=== PATIENT | male | born 1960 | race African-American/Black ===

== ENCOUNTER 2024-08-06 15:11 | Emergency (ER) | payer OTHER, SELFPAY ==
--- NOTE | 2024-08-06 | ECG_ITS ---
Test Reason : ALTERED MENTAL Blood Pressure : */* mmHG Vent. Rate : 82 BPM Atrial Rate : 82 BPM P-R Int : 152 ms QRS Dur : 116 ms QT Int : 400 ms P-R-T Axes : 77 42 85 degrees QTcB Int : 468 ms Normal sinus rhythm Minimal voltage criteria for LVH, may be normal variant ( Hang product ) Nonspecific T wave abnormality Prolonged QT Abnormal ECG When compared with ECG of 17-Jun-2014 14:10, T wave inversion no longer evident in Inferior leads Referred By: Generic ED Physician Electronically Signed By: HARRY SARAH
[2024-08-06 15:18] VITALS: BP 117/70; PULSE 84; RESP 18; TEMP 37.3; O2SAT 95; BMI 20.3
[2024-08-06 15:41] LABS: Hematocrit 32.9 % (42.0-52.0); Hemoglobin 11.8 g/dl (14.0-18.0); Imm Gran Abs Auto 0.01 X10*3/uL (0.00-0.03); Imm Gran Pct Auto 0.3 % (0.0-0.4); Lymphocytes Percent Auto 50.4 % (20-40); MANUAL DIFF FLAG NO; Mean Corpuscular HGB Conc 35.9 g/dl (31.0-36.0); Mean Corpuscular Hemoglobin 33.5 pg (27.0-33.0); Mean Corpuscular Volume 93.5 fL (80.0-98.0); Mean Platelet Volume 8.8 fL (9.4-12.4); Monocytes Absolute Auto 0.5 X10*3/uL (0.1-1.2); Monocytes Percent Auto 11.7 % (2-11); Neutrophils Absolute Auto 1.4 x10*3/uL (2.0-8.3); Neutrophils Percent Auto 35.6 % (45-73); Platelet Count 171 X10*3/uL (160-400); Red Blood Count 3.52 X10*6/uL (4.60-5.80); Red Cell Distribution Width 12.8 % (11.0-16.0); White Blood Count 3.9 X10*3/uL (4.8-10.8)
[2024-08-06 15:42] LABS: Glucose, Whole Blood 79 mg/dL (60-115)
[2024-08-06 15:56] LABS: Anion Gap 17 (12-20); Blood Urea Nitrogen 12 mg/dL (9-16); Calcium 8.1 mg/dL (8.4-10.2); Carbon Dioxide 23 mmol/L (22-29); Chloride 99 mmol/L (96-108); Creatinine Clr Calc Pharmacy 93.3; Estimated Glomerular Filt Rate > 60; Ethanol 247 mg/dL; Glucose Random 69 mg/dL (60-115); Potassium 3.3 mmol/L (3.3-5.1); Sodium 136 mmol/L (135-145)
--- NOTE | 2024-08-06 16:18 | MHC.CARE ---
Pt seen by [facility] crisis team in community, on section 12 for inpatient level of care. Requires medical clearance as glucose level is reported to be 700. [facility] to send assessment when completed.
[2024-08-06 16:52] LABS: Salicylate < 5.0 mg/dL (15-30)
--- NOTE | 2024-08-06 17:39 | ED_ITS ---
HPI - Psych General Chief Complaint: Psychiatric Symptoms Stated Complaint: Sec 12 [facility], delusional behavior, uncooperative Time Seen by Provider: 08/06/24 15:57 Source: patient and EMS Mode of arrival: EMS Limitations: altered mental status History of Present Illness ED Provider: Korina Mayfield NP HPI Narrative: Patient is a 63-year-old male past medical history of diabetes, hyperlipidemia, unclear mental health history who presents emergency department via EMS on a section 12, from [facility]. he was getting into a verbal altercation staff there, stating that someone had owed him money. Uncooperative with staff there. On arrival, he does not provide much history as to why he is here, he appears intoxicated, responds to his name, answer some yes no questions otherwise providing much meaningful history. section 12 listing history of delusional thought process , refusing diabetic medications, high sugars Related Data Home Medications ?Medication ?Instructions ?Recorded ?Confirmed insulin glargine 100 unit/mL (3 unit subcut 08/07/24 mL) subcutaneous pen (Lantus Solostar U-100 Insulin) insulin lispro 100 unit/mL subcut 08/07/24 subcutaneous pen (Humalog KwikPen (U-100) Insulin) metformin 1,000 mg tablet 1,000 mg PO BID diabetes mellitus 08/07/24 08/07/24 olanzapine 20 mg tablet 20 mg BEDTIME 08/07/24 08/07/24 simvastatin 20 mg tablet 20 mg PO BEDTIME 08/07/24 08/07/24 Allergies Allergy/AdvReac Type Severity Reaction Status Date / Time No Known Allergies Allergy Verified 08/06/24 15:22 [No Known Allergies*] Review of Systems 2 Review of Systems: Yes all other systems are reviewed and are negative [facility] Past Medical History Attestation statement: The following information was validated with the patient. Source: old records reviewed Social History Social History Unable to assess alcohol history related to: Refusing to respond Smoked in Last 30 Days: Yes Use of substances other than those prescribed or required for medical reasons: Refusing to respond Advance Directives: No Advance Directives Information Provided: No Physical Exam 2 Vital Signs: Vital Signs: Last Vital Signs Temp 98.4 F 08/07/24 17:47 Pulse 72 08/07/24 17:47 Resp 16 08/07/24 17:47 BP 172/99 H 08/07/24 17:47 Pulse Ox 98 08/07/24 17:47 O2 Del Method Room Air 08/07/24 17:47 BMI result Body Mass Index 20.3 Appearance: Alert but drowsy. No acute distress.? responds to name, answering some yes no questions. appears intoxicated Eyes: Pupils equal, round and reactive to light.? ENT: Pharynx normal.?? Neck: Normal inspection.? Neck supple.?? CVS: Heart sounds normal. Normal heart rate and rhythm.? Pulses normal.?? Respiratory: No respiratory distress.? Lung sounds clear to auscultation bilaterally?? Abdomen: Soft and non-tender. Normoactive bowel sounds. Skin: Skin warm and dry.? Normal skin color.? Extremities: No lower extremity edema.? Neuro: Moves all extremities spontaneously. Sensation intact bilaterally. unable to perform cranial nerve exam, not able to follow all commands due to acute intoxication. No focal deficits. Ambulates with unsteady gait. Course Reevaluation(s) Reevaluation #1: Evaluated by care team, deemed inpatient level of care, placed on section 12, bed search to ensue Time: 21:45 Reevaluation #2: Angel Barnes: The patient has been seen by Psychiatry today. 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 The patient is also noncompliant with any medications and denies having diabetes. Psychiatry does not feel the patient has the capacity to make healthcare decisions and therefore does not feel the patient can be discharged. Thus the patient will be kept in the emergency room. I have ordered Lantus insulin, metformin, olanzapine, and trazodone which has been the patient has medications at discharge from [facility] at the end of March 2024. I suspect the patient will not take any of these medications voluntarily. Psychiatry as recommended that case management pursue guardianship. The patient apparently has been on a temporary Ankit's order but this has . The patient will be kept in the emergency room for ongoing management. Time: 03:48 Medications Administered Generic Name Dose Route Start Last Admin Trade Name Freq PRN Reason Stop Dose Admin Insulin Human Lispro 0 unit 08/07/24 11:30 08/07/24 22:03 Insulin Lispro 100 Unit/Ml 3 Ml Vial SUBCUT 08/08/24 10:57 Not Given [facility]ACHS [facility] Protocol Thiamine HCl 100 mg 08/07/24 16:20 08/07/24 17:55 Thiamine Hcl 100 Mg Tablet PO Not Given DAILY [facility] Medical Decision Making Medical Decision Making [facility] Narrative: Patient is a 63-year-old male past medical history of diabetes, hyperlipidemia, unclear mental health history (no records in our medical system) who presents on a section 12 as per HPI got cirrhosis, and reportedly not taking his diabetic medications, was argumentative with staff at [facility] verbally aggressive. Acutely intoxicated at the time my evaluation. He does not provide much meaningful history. He is drowsy but alert and responds to name, answer some yes no questions though not clear if these are accurate answers. We will obtain serum labs in addition to toxicology testing. CBC reveals mild leukopenia 3900, mild normocytic anemia not meeting transfusion criteria, no thrombocytopenia. Viral serologies are negative. No RAFAEL. Glucose of 79. Ethyl alcohol level of 247. Will be placed in physician observation until clinically sober and can ensue care team evaluation. Will monitor CIWA Differential Diagnosis Differential Diagnoses: The differential diagnosis associated with the presentation includes (See narrative above and below for further detail) Admission/Observation Consideration of admission/observation: Escalation of care including admission/observation considered Patient is being observed in the Emergency Department for encephalopathy. Observation time was started at 16:11 on .?The patient is currently stable and non-toxic appearing. Observation is being initiated in the Emergency Department to allow time to help differentiate if the patient?s encephalopathy and delirium is due to alcohol intoxication and polysubstance abuse versus stroke, transient ischemic attack, major depression, overdose of medication, arrhythmia, seizure, or closed head injury/concussion. The patient will receive frequent assessments from the provider as well as the nursing staff. The patient will be monitored for the need for diagnostic imaging such as a CT head, MRI brain, chest x-ray, and serial EKGs to evaluate for prolonged QTc intervals. The patient will also be monitored for the need of PRN agitation medications such as Haldol, Ativan, and Benadryl. Physician observation continued. No acute events during my care. Vital signs stable. We will continue to monitor. Consult Healthcare Provider Management of the patient was discussed with: Behavioral Health Provider (CARE team) Lab Data [facility] Lab Attestation statement: I reviewed the patient's lab results. ( see narrative above) 08/06/24 15:35 08/06/24 15:35 Labs: Lab Results 08/06/24 08/06/24 08/07/24 Range/Units 15:35 15:39 09:51 WBC 3.9 L (4.8-10.8) X10*3/uL RBC 3.52 L (4.60-5.80) X10*6/uL Hgb 11.8 L (14.0-18.0) g/dl Hct 32.9 L (42.0-52.0) % MCV 93.5 (80.0-98.0) fL MCH 33.5 H (27.0-33.0) pg MCHC 35.9 (31.0-36.0) g/dl RDW 12.8 (11.0-16.0) % Plt Count 171 (160-400) X10*3/uL MPV 8.8 L (9.4-12.4) fL Immature Gran % (Auto) 0.3 (0.0-0.4) % Neut % (Auto) 35.6 L (45-73) % Lymph % (Auto) 50.4 H (20-40) % [place] % (Auto) 11.7 H (2-11) % Eos % (Auto) 1.0 (0-4) % Baso % (Auto) 1.0 (0-2) % Lymph # (Auto) 2.0 (1.2-4.9) X10*3/uL [place] # (Auto) 0.5 (0.1-1.2) X10*3/uL Eos # (Auto) 0.0 (0.0-0.4) X10*3/uL Baso # (Auto) 0.0 (0.0-0.2) X10*3/uL Abs Immat Gran (auto) 0.01 (0.00-0.03) X10*3/uL Absolute Neuts (auto) 1.4 L (2.0-8.3) x10*3/uL Absolute Nucleated RBC 0.000 (0.0-0.012) X10*3/uL Nucleated RBC % (auto) 0.0 (0.0-0.2) /100WBC Sodium 136 (135-145) mmol/L Potassium 3.3 (3.3-5.1) mmol/L Chloride 99 (96-108) mmol/L Carbon Dioxide 23 (22-29) mmol/L Anion Gap 17 (12-20) BUN 12 (9-16) mg/dL Creatinine 0.80 (0.5-1.4) mg/dL Estim Creat Clear Calc 93.3 Estimated GFR > 60 POC Glucose 79 366 H* (60-115) mg/dL Random Glucose 69 (60-115) mg/dL Calcium 8.1 L (8.4-10.2) mg/dL Triglycerides 84 (<150) mg/dL Cholesterol 222 H (<200) mg/dL LDL Cholesterol, Calc 138 H (<100) mg/dL HDL Cholesterol 68 (>40) mg/dL Vitamin B12 866 (200-900) pg/mL Folate 14.2 (> or = 4.0) ng/mL TSH 0.30 L (0.32-4.0) uIU/mL Free T4 0.91 (0.71-1.85) ng/dL Salicylates < 5.0 L (15-30) mg/dL Ethyl Alcohol 247 mg/dL Independent Historian Clinical information obtained from an independent historian. History obtained from or confirmed by: EMS Chronic Conditions Patient?s care impacted by: Other ( see narrative above) Discharge Plan Discharge Clinical Impression: Alcohol intoxication Patient Disposition: Still a Patient Prescriptions: No Action simvastatin 20 mg tablet 20 mg PO BEDTIME metformin 1,000 mg tablet 1,000 mg PO BID olanzapine 20 mg tablet 20 mg BEDTIME insulin lispro [Humalog KwikPen Insulin] 100 unit/mL insulin pen SUBCUT insulin glargine [Lantus Solostar U-100 Insulin] 100 unit/mL (3 mL) insulin pen subcut Interventions: [place]-Suicide Risk Severity Scale Last Done: 08/07/24 17:07 Print Language: Estonian
--- NOTE | 2024-08-06 18:08 | PC.NURSE ---
patient previously brought from [facility], section 12 by chd in the field. patient has been ambulating independently, resting quietly in room.
[2024-08-06 18:19] VITALS: BP 143/76; PULSE 80; RESP 14; TEMP 36.7; O2SAT 97
--- NOTE | 2024-08-06 19:05 | PC.NURSE ---
patient appears to remain at rest presently respirations are even and unlabored patient appears in no distress
--- OUTSIDE RECORDS SUMMARY | 2024-08-06 19:16 | XMS_ITS | Encounter Summary ---
Author Organization [facility] Address [address] [place] [address] Care Team Providers Care Dental Chairside Assistant Name Role Phone Norbert Vitale Primary Care Provider [phone] Encounter Details Date Type Department Care Team (Late st Contact Info) Description 09/27/2021 Dental Interim Note [facility] Main Dental [address] [place] [id number] Carmen Quinteros DDS [address] [place] [address] Social History Tobacco Use Types Packs/Day Years Used Date Smoking Tobacco: Heavy Smoker Cigarettes Smokeless Tobacco: Never Alcohol Use Standard Drinks/Week Comments Yes 0 (1 standard drink = 0.6 oz pur e alcohol) Social Connections Answer Date Recorded Social Connections and Isolation 0 01/17/2019 Financial Resource Strain Answer Date R ecorded Financial Resource Strain 0 2018 Stress Answer Date Recorded Stress 0 01/17/2019 Physical Activity Answer Date Recorded Physical Activity 0 01/17/2019 Food Insecurity Answer Date Recorded Food 0 01/17/2019 Transportation Needs Answer Date Record ed Transportation 0 01/17/2019 Housing Stability Answer Date Recorded Housing 0 01/17/2019 Safety and Environment Answer Date Cj rded Safety 0 01/17/2019 Utilities Answer Date Recorded Utilities 0 01/17/2019 Employment Answer Date Recorded Employment 0 01/17/2019 Sex and Gender Information Value Date Recorded Sex Assigned at Male 12/26/2017 9:46 AM PDT Legal Sex Male 11:36 AM PDT Gender Identity Male 12/26/2017 9:46 AM PDT Sexual Orientation Straight 12/26/2017 9: 46 AM PDT documented as of this encounter Plan of Treatment Upcoming Encounters Date Type Department Care Team (Late st Contact Info) Description 08/18/2024 2:20 PM EDT [facility] [address] [place] [phone] Norbert Vitale PA [address] [place] [address] documented as of this encounter Visit Diagnoses Not on filedocumented in this encounter Additional Health Concerns Assessment Noted Time PHQ-9 Depression Total Score: 0 01/18/20 21 10:06 AM PDT documented as of this encounter Care Teams Dental Chairside Assistant Relationship Specialty Start Date End Date Norbert Vitale PA [address] [place] [address] PCP - General Internal Medicine 12/13/17 documented as of this encounter
--- OUTSIDE RECORDS SUMMARY | 2024-08-06 19:16 | XMS_ITS | Clinical Summary ---
Author Organization [facility] Address [address] [place] [address] Care Team Providers Care Ground Operations Supervisor Name Role Phone Norbert Vitale Primary Care Provider [phone] Source Comments PLEASE NOTE, if this patient is a minor, it may be UNLAWFUL to discuss sensitive information that is contained in these records (such as FAMILY PLANNING, MENTAL HEALTH or SUBSTANCE ABUSE) with the minor patient's parent or other person without the patient's specific authorization.[facility] Allergies No known active allergies Medications multivitamin (DAILY-FRANDY) tabletIndications :Health care maintenance Take 1 Tab by mouth once daily 30 Tab 1 0 Active multivitamin (DAILY-FRANDY) tabletIndications :Health care maintenance Take 1 Tab by mouth once daily 30 Tab 0 Active dulaglutide (TRULICITY) 1.5 mg/0.5 mL pnijIndications:C ontrolled type 2 diabetes mellitus with complication, with long-term current use of insulin ([facility]) Inject 1.5 mg into the skin once a week 4 Syringe 11 0 Active alcohol swabs (ALCOHOL PREP PADS)Indications: Controlled type 2 diabetes mellitus with complication, with long-term current use of insulin ([facility]) USE EVERY DAY DIRECTED 200 Each 5 0 Active lancetsIndication s:Controlled type 2 diabetes mellitus with complication, with long-term current use of insulin ([facility]) Use bid for dm 250.02 as directed. 100 Each 1 0 Active blood sugar diagnostic (FREESTYLE LITE STRIPS) stripsIndications :Type 2 diabetes mellitus with complication, with long-term current use of insulin ([facility]) as needed for high blood sugar (bid testing for DM 250.02) 100 Each 11 0 Active blood-glucose meter (FREESTYLE LITE METER) monitoring kitIndications:Ty pe 2 diabetes mellitus with complication, with long-term current use of insulin ([facility]) as needed for blood glucose monitoring E11.8 - Freestyle Meter Kit 1 Each 0 Active OLANZapine (ZYPREXA) 10 mg tablet 0 Active OLANZapine (ZYPREXA) 20 mg tablet 0 Active BD INSULIN SYRINGE ULTRA-FINE 0.5 mL 31 gauge x 5/16 0 Active benztropine (COGENTIN) 1 mg tablet 0 Active fluPHENAZine decanoate (PROLIXIN) 25 mg/mL injection 0 Active food supplemt, lactose-reduced liquidIndications :Weight loss Take by mouth as needed for other reason Drink one can twice daily. 414 mL 1 Active lisinopriL 10 mg tabletIndications :Controlled type 2 diabetes mellitus with complication, with long-term current use of insulin ([facility]) TAKE 1 TABLET BY MOUTH EVERY DAY 90 Tablet 2 2 Active metFORMIN (GLUCOPHAGE) 500 mg tabletIndications :Controlled type 2 diabetes mellitus with complication, with long-term current use of insulin ([facility]) TAKE 1 TABLET BY MOUTH TWICE A DAY WITH FOOD 180 Tablet 1 3 Active glipiZIDE (GLUCOTROL) 10 mg tabletIndications :Uncontrolled other specified diabetes mellitus with hyperglycemia ([facility]) Take 10 mg by mouth 2 (two) times daily before a meal 4 Active haloperidoL (HALDOL) 10 mg tablet Take 10 mg by mouth once 4 Active haloperidoL (HALDOL) 5 mg tablet Take 5 mg by mouth 2 (two) times daily 4 Active simvastatin (ZOCOR) 20 mg tabletIndications :Hypercholesterem ia Take 1 tablet by mouth everyday at bedtime 90 Tablet 1 4 Active traZODone (DESYREL) 50 mg tabletIndications :Insomnia, unspecified type Take 1 Tablet by mouth nightly at bedtime 30 Tablet 4 Active ferrous sulfate 325 mg (65 mg iron) tabletIndications :Anemia, unspecified type Take 1 Tablet by mouth once daily with breakfast 90 Tablet 2 4 Active Active Problems Problem Noted Date Diagnosed Date Type 2 diabetes mellitus ([facility]) 09/08/2013 Alcohol dependence ([facility]) 06/04/2011 Moderate mixed hyperlipidemia not requiring stat in therapy Paranoid schizophrenia ([facility]) Anemia Healthcare maintenance Immunizations Name Administration Dates Next Due Flu, Preservative Free 02/26/2018 TDAP 01/28/2022 Social History Tobacco Use Types Packs/Day Years Used Date Smoking Tobacco: Heavy Smoker Cigarettes Smokeless Tobacco: Never Tobacco Cessation:Ready to Q uit: No; Counseling Given: Not Answered Alcohol Use Standard Drinks/Week Comments Yes 0 (1 standard drink = 0.6 oz pur e alcohol) Social Connections Answer Date Recorded Connectedness 0 11/22/2021 Financial Resource Strain Answer Date R ecorded Financial Resource Strain 0 2018 Stress Answer Date Recorded Stress 0 11/22/2021 Physical Activity Answer Date Recorded Physical Activity 0 01/17/2019 Food Insecurity Answer Date Recorded Food 0 11/22/2021 Transportation Needs Answer Date Record ed Transportation 0 11/22/2021 Housing Stability Answer Date Recorded Housing 0 11/22/2021 Safety and Environment Answer Date Cj rded Safety 0 11/22/2021 Utilities Answer Date Recorded Utilities 0 11/22/2021 Employment Answer Date Recorded Employment 0 01/17/2019 Sex and Gender Information Value Date Recorded Sex Assigned at Male 12/26/2017 9:46 AM PDT Legal Sex Male 11:36 AM PDT Gender Identity Male 12/26/2017 9:46 AM PDT Sexual Orientation Straight 12/26/2017 9: 46 AM PDT Last Filed Vital Signs Vital Sign Reading Time Taken Comments Blood Pressure 166/90 09/17/2023 1:22 PM EDT Pulse 94 09/17/2023 1:22 PM EDT Temperature 36.8 ??C (98.2 ??F) 09/17/2023 1:22 PM ED T Respiratory Rate 20 09/17/2023 1:22 PM EDT Oxygen Saturation 97% 09/17/2023 1:22 PM EDT Inhaled Oxygen Concentration - - Weight 73.5 kg (162 lb) 09/17/2023 1:22 PM EDT Height 175.3 cm (5' 9 ) 09/17/2023 1:22 PM EDT Body Mass Index 23.92 09/17/2023 1:22 PM EDT Plan of Treatment Upcoming Encounters Date Type Department Care Team (Late st Contact Info) Description 08/18/2024 2:20 PM EDT Office Visit [address] [place] [phone] Norbert Vitale PA [address] [place], [place] [phone] Health Maintenance Due Date Last Done Comments Dental Examination 1960 Diabetes Foot Exam 1962 Retinopathy Screening 10/12/1975 Imm-Pneumococcal (1 of 2 - PCV) 1981 CT Colonography 10/12/2007 Colonoscopy 10/12/2007 Colorectal Cancer Screening 10/12/2007 FIT/gFOBT 10/12/2007 Fecal DNA 10/12/2007 Flexible Sigmoidoscopy 10/12/2007 Imm-Zoster, Recombinant (1 of 2) 2012 Medicare Annual Wellness Visit 12/26/2018 12/26/2017 Diabetes Microalbumin (w/Creatinine) 01/17/2022 01/17/2021 Tobacco Cessation Counseling (#1) 01/17/2022 021 Diabetes HbA1c 12/17/2023 09/17/2023, 10/26, 01/23/2021, Additional history exists [id number] ( - season) 2024 Imm-Influenza (#1) 2024 02/26/2018 Alcohol and Drug Screen 05/27/2024 09/17/19 24, 11/22/2021, 11/22/2021, Additional history exists Depression Annual Screen 05/27/2024 024, 12/25/2018, 12/26/2017 Hypertension Screening (#1) 09/16/2024 Lipid Screening 09/16/2024 09/17/2023, 12/27, 12/25/2018 Serum Creatinine 09/16/2024 09/17/2023, 06/2019, 12/25/2018, Additional history exists Imm-DTaP/Tdap/Td (2 - Td or Tdap) 01/29/2032 022 Hepatitis C Screening Completed 12/25/2018 HIV Screening Completed 01/23/2021 Procedures Procedure Name Priority Date/Time Associated Diagnosis Comments COMPREHENSIVE METABOLIC PANEL Routine 09/17/2023 2:29 PM EDT Hospital discharge follow-up LIPID PANEL Routine 09/17/2023 2:29 PM EDT Hospital discharge follow-up HGBA1C W/MPG Routine 09/17/2023 2:29 PM EDT Hospital discharge follow-up HIV 1/2 AG & AB W/RFLX (4TH GEN) Routine 01/23/2021 8:29 AM EDT Routine adult health maintenance MICROALBUMIN URINE (POCT) Routine 01/17/2021 4:13 PM EDT Prediabetes HEPATITIS A,B,C PANEL Routine 12/25/2018 4:25 PM EDT Controlled type 2 diabetes mellitus with complication, with long-term current use of insulin ([facility]) from Last 3 Months or Most Recently Relevant to Health Maintenance Results * (ABNORMAL) HGBA1C W/MPG (09/17/2023 2:29 PM EDT) HEMOGLOBIN A1C 12.2(H) <5.7 % of total Hgb [email or web address] Comment: For someone without known diabetes, a hemoglobin A1c value of 6.5% or greater indicates that they may have diabetes and this should be confirmed with a follow-up test. For someone with known diabetes, a value <7% indicates that their diabetes is well controlled and a value greater than or equal to 7% indicates suboptimal control. A1c targets should be individualized based on duration of diabetes, age, comorbid conditions, and other considerations. Currently, no consensus exists regarding use of hemoglobin A1c for diagnosis of diabetes for children. ?? MEAN PLASMA GLUCOSE 357 mg/dL (calc) [email or web address] Blood Blood / Unknown 09/17/2023 2 :29 PM EDT 09/17/2023 2:29 PM EDT Narrative [facility] - 09/18/2023 8:42 AM EDT PATIENT UNABLE TO VOID; ADVISED TO RETURN FOR COLLECTION. Monalisa Jimenez PA-C LAB - BLOOD DRAW Edited Res ult - Final [facility] [employer] [address] [place] [address], [facility] [address] [address] * (ABNORMAL) LIPID PANEL (09/17/2023 2:29 PM EDT) [facility] CHOLESTEROL, TOTAL 274(H) <200 mg/dL [facility] HDL CHOLESTEROL 96 > OR = 40 mg/dL [facility] TRIGLYCERIDES 105 <150 mg/dL [facility] LDL-CHOLESTEROL 156(H) 99 mg/dL (calc) [facility] Comment: Reference range: <100 Desirable range <100 mg/dL for primary prevention; ?? <70 mg/dL for patients with CHD or diabetic patients with > or = 2 CHD risk factors. LDL-C is now calculated using the Adarsh-Samuels calculation, which is a validated novel method providing better accuracy than the Friedewald equation in the estimation of LDL-C. Adarsh SS et al. CARROLL. 2013;310(19): 2394-5111 (http://education.Needcheck/faq/AZA692) CHOL/HDLC RATIO 2.9 <5.0 (calc) [facility] NON-HDL CHOLESTEROL 178(H) <130 mg/dL (calc) [facility] Comment: For patients with diabetes plus 1 major ASCVD risk factor, treating to a non-HDL-C goal of <100 mg/dL (LDL-C of <70 mg/dL) is considered a therapeutic option. Blood Blood / Unknown 09/17/2023 2 :29 PM EDT 09/17/2023 2:29 PM EDT Narrative [facility] - 09/18/2023 8:42 AM EDT PATIENT UNABLE TO VOID; ADVISED TO RETURN FOR COLLECTION. Monalisa Jimenez PA-C LAB - BLOOD DRAW Final Resu lt [facility] [address] [address], [facility] [address] [place] [address] * (ABNORMAL) COMPREHENSIVE METABOLIC PANEL (09/17/2023 2:29 PM EDT) GLUCOSE 295(H) 65 - 99 mg/dL [facility] Comment: ?Fasting reference interval For someone without known diabetes, a glucose value >125 mg/dL indicates that they may have diabetes and this should be confirmed with a follow-up test. UREA NITROGEN (BUN) 12 7 - 25 mg/dL [facility] CREATININE (blood) 0.81 0.70 - 1.35 mg/dL [facility] EGFR 101 > OR = 60 mL/min/1. 73m2 [email or web address] BUN/CREATININE RATIO SEE NOTE: [facility] Comment: ?? Not Reported: BUN and Creatinine are within ?? reference range. ? SODIUM 136 135 - 146 mmol/L [facility] POTASSIUM 3.9 3.5 - 5.3 mmol/L [facility] CHLORIDE 101 98 - 110 mmol/L [facility] CARBON DIOXIDE 24 20 - 32 mmol/L [facility] CALCIUM 9.3 8.6 - 10.3 mg/dL [facility] PROTEIN, TOTAL 7.7 6.1 - 8.1 g/dL [facility] ALBUMIN 4.2 3.6 - 5.1 g/dL [facility] GLOBULIN 3.5 1.9 - 3.7 g/dL (calc) [facility] ALBUMIN/GLOBULI N RATIO 1.2 1.0 - 2.5 (calc) [facility] BILIRUBIN, TOTAL 0.4 0.2 - 1.2 mg/dL [facility] ALKALINE PHOSPHATASE 104 35 - 144 U/L [facility] AST 24 10 - 35 U/L [facility] ALT 15 9 - 46 U/L [facility] Blood Blood / Unknown 09/17/2023 2 :29 PM EDT 09/17/2023 2:29 PM EDT Narrative [facility] - 09/18/2023 8:42 AM EDT PATIENT UNABLE TO VOID; ADVISED TO RETURN FOR COLLECTION. Monalisa Jimenez PA-C LAB - BLOOD DRAW Final Resu lt [facility] [address] [address], [facility] [address] [address] * HIV 1/2 AG & AB W/RFLX (4TH GEN) (01/23/2021 8:29 AM EDT) HIV AG/AB, 4TH GEN NON-REAC TIVE NON-REAC TIVE [facility] Comment: HIV-1 antigen and HIV-1/HIV-2 antibodies were not detected. There is no laboratory evidence of HIV infection. PLEASE NOTE: This information has been disclosed to you from records whose confidentiality may be protected by state law. ??If your state requires such protection, then the state law prohibits you from making any further disclosure of the information without the specific written consent of the person to whom it pertains, or as otherwise permitted by law. A general authorization for the release of medical or other information is NOT sufficient for this purpose. ?? For additional information please refer to http://education.S4 Worldwide/faq/UEJ224 (This link is being provided for informational/ educational purposes only.) The performance of this assay has not been clinically validated in patients less than 2 years old. Blood Blood / Unknown 01/23/2021 8 :29 AM EDT 01/23/2021 8:30 AM EDT Narrative [facility] - 01/24/2021 1:18 AM EDT FASTING:YES Norbert PATEL LAB - BLOOD DRAW Final Result [facility] [address] [address], [employer] [address] [address] * (ABNORMAL) MICROALBUMIN URINE (POCT) (01/17/2021 4:13 PM EDT) ALBUMIN 150 0 - 300 mg/L [facility] PO[facility] URCREAT 100 10 - 300 mg/dL [facility] POCT Comment: ??[facility] [id number] ALBUMIN/CREATIN INE RATIO >300 29 - 300 mg/g [facility] POCT Urine Urine specimen / Unknown 01/17/2021 4:13 PM EDT Norbert PATEL LAB - NO BLOOD DRAW Final Resu lt [facility] POCT * HEPATITIS A,B,C PANEL (12/25/2018 4:25 PM EDT) HEPATITIS B SURFACE ANTIBODY NEGATIVE NEGATIVE [facility] HEPATITIS B SURFACE ANTIGEN NEGATIVE NEGATIVE [facility] Comment: Over the counter supplements containing high doses of biotin may interfere with this assay. ??If interference is suspected, patients shoud be retested after refraining from biotin supplements for 72 hours. HEPATITIS C VIRUS DIAGNOSTIC NEGATIVE NEGATIVE [facility] HEPATITIS B CORE ANTIBODY NEGATIVE NEGATIVE [facility] HEPATITIS A ANTIBODY TOTAL NEGATIVE NEGATIVE [facility] Comment: Over the counter supplements containing high doses of biotin may interfere with this assay. ??If interference is suspected, patients shoud be retested after refraining from biotin supplements for 72 hours. Blood specimen (specimen) Blood / Unknown 12/25/2018 4:25 PM EDT 12/25/2018 4:55 PM EDT Narrative [facility] - 12/25/2018 7:27 PM EDT [employer], a member of [address] [address] [employer] Ui Designer - Amy Waggoner [place] [id number] ORD# [id number] Norbert PATEL [facility] - BLOOD DRAW Edited Result - Final Performing Organization Address City/[facility]/ZIP Co de Phone Number [employer] [address], from Last 3 Months or Most Recently Relevant to Health Maintenance Insurance [facility] Member Subscriber Plan / Payer (Ef fective 2013-Present) Name:Kishan Kumar Relation to Subscriber:Self Name:Kishan Kumar Payer ID:[id number] Group ID:Not on file Type:[employer] Address: [address] [place] [address] [facility] Care Teams Ground Operations Supervisor Relationship Specialty Start Date End Date Norbert Vitale PA [address] [place] [address] PCP - General Internal Medicine 12/13/17
--- NOTE | 2024-08-06 20:12 | PC.NURSE ---
according to prior nurse, not med compliant
[2024-08-06 22:09] VITALS: RESP 18
[2024-08-07 06:00] VITALS: RESP 18
--- NOTE | 2024-08-07 08:20 | PC.NURSE ---
PT inquiring about why he is still here, attempted to explain, pt adamant about not needing hospitalization. Pt currently in NAD, sitting and rocking gently side to side in his room. Ate all of his breakfast this am.
[2024-08-07 09:55] LABS: Glucose, Whole Blood 366 mg/dL (60-115)
--- NOTE | 2024-08-07 09:56 | PC.NURSE ---
OBTAINED POCT GLUCOSE AFTER PT INITIAL REFUSAL, PT DENIES DX OF DIABETES DIAGNOSIS. POCT GLUCOSE 366, WILL NOTIFY PROVIDER FOR NEW ORDERS AND MED REC.
--- NOTE | 2024-08-07 11:32 | PC.NURSE ---
Addendum entered by Angie Ramirez RN 08/07/24 11:34: DIET ORDER CORRECTED TO DIABETIC TRAY. Original Note: ATTEMPTED TO ADMINISTER INSULIN SUBQ ORDERED, PT IS REFUSING, BECOMING BELLIGERENT, PROFANE LANGUAGE CONTINUING TO DENY DIABETES DX. PT YELLING, LEAVING NO ROOM FOR REASONABLE DISCUSSION AND INQUIRY.
--- NOTE | 2024-08-07 13:44 | PC.NURSE ---
Pt refusing POC check, became agitated and combative with staff.
--- NOTE | 2024-08-07 13:55 | MHC.EDTECH ---
Attempted POC check. Pt refused and became verbally abusive saying I don't have diabetes! Get out of my face you fug ase!
[2024-08-07 14:39] VITALS: RESP 16
--- NOTE | 2024-08-07 16:40 | PM.PSYCN ---
History of Present Illness Date of Service: 08/07/2024 Chief Complaint: Sec 12 CHD, delusional behavior, uncooperative Discussed with referring provider: Yes Sources of Information: patient interviewed, chart reviewed and crisis/core team assessment reviewed HPI Narrative: Mr. Valdivia is a 63 year-old male with hx of DM, schizophrenia, alcohol/cocaine use disorder who was brought via EMS after he was seen by [facility]S team. Pt has been refusing medications for both psychiatric illness and DM. He was last medically admitted at [facility] back in 02/2024 when he was treated for DKA (per [facility] Records). At the time, they had obtained a guardianship with [employer]. Unclear if it is still active. Pt presents as very guarded, suspicious. He was found to have BS 366, refusing lispro stating he does not have DM and this is a lie by the doctors here. His BAL initially was 247. CBC without leukocytosis. CMP without electrolyte abnormalities. complete utox not completed. Pt presents as irritable but eventually agreeable to speak with this automobile service writer. He reports he does not know why he is here. He reports he was sent here from [facility] He reports [facility] ACCS worker is his repayee. He continues to denied that he needs any medical intervention. He denies that he has DM. He appears internally preoccupied. He denies SI/HI. He asks to be discharged back home. Past Psychiatric History: Inpt:multiple in the past but non current OP: Elliott Sweeney [facility] DMH: Santiago Hartman ACCS:Elan Handle [phone] Ankit[employer] monitor: Shayy Osorio Past Medication hx: olanzapine, unclear he has other trials or side effects to antipsychotics with REBOLLEDO option. Medical Evaluation Reviewed: Yes Diagnostics Vital Signs (24Hr): Vital Signs - 24 hr 08/06/24 18:19 08/06/24 22:09 08/07/24 06:00 Temperature 98.1 F Pulse Rate 80 Respiratory Rate 14 18 18 Blood Pressure 143/76 H Pulse Oximetry 97 Oxygen Delivery Method Room Air 08/07/24 14:39 Temperature Pulse Rate Respiratory Rate 16 Blood Pressure Pulse Oximetry Oxygen Delivery Method BMI result Body Mass Index 20.3 Labs 08/06/24 15:35 08/06/24 15:35 Labs: Laboratory Results - last 48 hr 08/06/24 08/06/24 08/07/24 15:35 15:39 09:51 WBC 3.9 L RBC 3.52 L Hgb 11.8 L Hct 32.9 L MCV 93.5 MCH 33.5 H MCHC 35.9 RDW 12.8 Plt Count 171 MPV 8.8 L Immature Gran % (Auto) 0.3 Neut % (Auto) 35.6 L Lymph % (Auto) 50.4 H [place] % (Auto) 11.7 H Eos % (Auto) 1.0 Baso % (Auto) 1.0 Lymph # (Auto) 2.0 [place] # (Auto) 0.5 Eos # (Auto) 0.0 Baso # (Auto) 0.0 Abs Immat Gran (auto) 0.01 Absolute Neuts (auto) 1.4 L Absolute Nucleated RBC 0.000 Nucleated RBC % (auto) 0.0 Sodium 136 Potassium 3.3 Chloride 99 Carbon Dioxide 23 Anion Gap 17 BUN 12 Creatinine 0.80 Estim Creat Clear Calc 93.3 Estimated GFR > 60 POC Glucose 79 366 H* Random Glucose 69 Calcium 8.1 L Salicylates < 5.0 L Ethyl Alcohol 247 Mental Status Exam Mental Status Exam Narrative: Appearance: disheveled, unkempt, restless Behavior: very guarded, suspicious, irritable Psychomotor: no agitation or retardation noted Speech: mostly clear, normal rate/rhythm/volume, spontaneous TP: tangential TC: wanting to go home Mood: fine Affect: irritable, guarded SI: denies HI: denies VH/AH: appears internally preoccupied Delusions: paranoid Insight/judgment: impaired x 2. Memory/cog: alert, not oriented to situation Medications Medications Current Medications Dextrose (Dextrose 50 % 25 Gm/50 Ml Syringe) 25 gm IVPUSH Q15M PRN; Protocol PRN Reason: per Hypoglycemia Standing Ord. Glucose (Glucose Gel 15 Gm Gel..Gram.) 15 gm PO Q15M PRN; Protocol PRN Reason: per Hypoglycemia Standing Ord. Insulin Human Lispro (Insulin Lispro 100 Unit/Ml 3 Ml Vial) 0 unit SUBCUT QIDACHS [facility]; Protocol Stop: 08/08/24 10:57 Last Admin: 08/07/24 11:34 Dose: Not Given Lorazepam (Lorazepam 1 Mg Tablet) 1 mg PO Q4H PRN PRN Reason: ciwa 7-12 Thiamine HCl (Thiamine Hcl 100 Mg Tablet) 100 mg PO DAILY MELLO Allergies Allergies Allergy/AdvReac Type Severity Reaction Status Date / Time No Known Allergies Allergy Verified 08/06/24 15:22 [No Known Allergies*] Assessment & Plan Assessment & Plan (1) Schizophrenia: Status: Acute Code(s): F20.9 - Schizophrenia, unspecified (2) Diabetes mellitus type 2 with complications: Status: Acute Code(s): E11.8 - Type 2 diabetes mellitus with unspecified complications Plan Mr. Kumar is a 63 year-old male with hx of schizophrenia, DM, who was sent to [facility] due to concerns in terms of his ability to care for himself. He had [employer] and a [employer]adian after he was admitted medically at [facility] Last 02/2024. He has refused care and not able to follow up with providers as he avoids them due to paranoia delusions. In the ED, found to have elevated BS, not in DKA. However, he refuses insulin stating he does not have DM because he was cured. He is currently not in need of inpt level of care for psychiatric admission. However, he is not able to care for himself and requires locked setting. It appears his guardianship on 08/07/2024, which regardless have not been able to be enforced as it does not include placement and antipsychotic is not REBOLLEDO. PLAN 1. No imminent safety concern in terms of acute psychiatric symptoms. However, pt does not have capacity to make medical decisions, moreover, he is not able to care for himself and has failed outpatient services as he elopes and avoids them which makes it difficult to follow in the community. Suggest filing for guadianship that includes authority to place, conservatorship, and chaudhari. Refer to case management 2. Obtain collateral information from OP supports. Total time managing care of this patient today ____ minutes.
[2024-08-07 17:47] VITALS: BP 172/99; PULSE 72; RESP 16; TEMP 36.9; O2SAT 98
--- NOTE | 2024-08-07 17:48 | PC.NURSE ---
REFERRED TO CM BY GUS FARRAR
--- NOTE | 2024-08-07 17:54 | PC.NURSE ---
pt finally amenable to VS, continues to refuse insulin, any other meds, labs.
--- NOTE | 2024-08-07 19:16 | PC.NURSE ---
patient appears to remain at rest presently respirations are even and unlabored patient appears in no distress.
--- NOTE | 2024-08-07 19:18 | PC.NURSE ---
addendum patient refusing some care.
--- NOTE | 2024-08-07 23:17 | MHC.CM.ED ---
CM did not meet with this patient. It was unclear until 0 if patient would be an IPLOC or need guardianship and chaudhari. Dr Silverio medically cleared patient. Pt has DM2 and schizophrenia and a hx of med non-compliance. Pt has not been taking his medications as he believes he is cured of his diseases. Per psych eval: Pt DOES NOT have capacity. Recommended guardianship, Chaudhari order and LTC in a locked unit. Pt has been living in a [facility]D ACCS home with 2 other individuals. Pt is a flight risk. Will remain in BH pod at this time. Eli Aguirre is aware of situation. Will inform Dasia Parr of need for guardianship and Ankit's order. Pt will need formal CM assessment in the morning. Expect patient will be difficult to place d/t chronic schizophrenia. Pt does have [employer] insurance.
[2024-08-08 00:13] LABS: Cholesterol 222 mg/dL (<200); HDL Cholesterol 68 mg/dL (>40); LDL Cholesterol Calculated 138 mg/dL (<100); Triglycerides 84 mg/dL (<150)
[2024-08-08 00:41] LABS: Folate 14.2 ng/mL (> or = 4.0); Vitamin B12 866 pg/mL (200-900)
[2024-08-08 01:05] LABS: Free T4 (Free Thyroxine) 0.91 ng/dL (0.71-1.85)
[2024-08-08 03:46] LABS: Estimated Average Glucose 235 mg/dL; Hemoglobin A1c % 9.8 % (<6.0)
--- NOTE | 2024-08-08 07:29 | MHC.EDTECH ---
pt refused checking sugar levels stating he is not diabetic
[2024-08-08 07:37] VITALS: BP 174/89; PULSE 106; RESP 18; TEMP 36.8; O2SAT 100
--- NOTE | 2024-08-08 07:59 | PC.NURSE ---
Assumed care of pt at 0700. Pt up at the side of the bed, agitated/frustrated with staff. Tech attempted to obtain POC, pt became verbally aggressive/agitated stating I am not diabetic. Refused POC/vitals, pt educated on need for POC/vitals d/t pt being diabetic/monitoring vitals. Pt continuing to refuse, voicing agitation with staff. Pt resting up on side of the bed eating breakfast, call galloway within reach, all needs met at this time.
--- NOTE | 2024-08-08 08:00 | MHC.EDTECH ---
Patient upset regarding breakfast served. Patient received oatmeal, a small fritata, and a banana. Patient asking for more protein. This tech called the kitchen and per kitchen staff unable to provide patient with smyth or sausage because they are on a diabetic order. Kitchen staff, sent up pancakes and maple syrup. Patient unhappy and tossed pancake container.
--- NOTE | 2024-08-08 09:51 | MHC.EDTECH ---
Patient refusing to provide urine sample at this time.
--- NOTE | 2024-08-08 11:54 | MHC.EDTECH ---
Patient agitated and swearing at staff in the milieu regarding coffee. This tech spoke with patient in his room regarding his coffee, I heard and psoke with patient on his frustrations. Call to kitchen ordered patient burgers for lunch. Patient aware that coffee may not come until lunch. In the interim this tech provided patient with gingerale, hot tea was offered, and patient declined.
--- NOTE | 2024-08-08 12:36 | MHC.CM.PN ---
PER PSYCH PT DOES NOT HAVE CAPACITY AND RECOMMENDS GUARDIANSHIP, TYLER ( ON 08/07/24) AND PLACEMENT ON LOCKED UNIT. MICRO COMPUTER SPECIALIST RENNY JUAREZ TEAM & PT'S REP PAYEE: ELKE MONTILLA [phone], OFFICE #[phone] [facility] CONTACT: NED MEEK, NO CONTACT NUMBER PROVIDED
--- NOTE | 2024-08-08 15:10 | PHA.MEDREC ---
Pharmacy Consult ? Medication Reconciliation Pharmacy has reviewed the medication reconciliation done by nursing. Cannot confirm the insulins, tried to talk to patient for 2 days but patient is agitated (even refusing POC glucose testing per nurse Aleida), can't use pharmacy claims because humalog was last picked up 04/20/24 for 90 day supply and lantus was last picked up on 04/20/24 for 60 day supply.
--- NOTE | 2024-08-08 18:34 | MHC.EDTECH ---
This tech was unable to obtain all vital signs. Patient was frustrated that the BP was recycling and demanded removal of cuff. RN aware and the rest of the vitals entered into system.
--- NOTE | 2024-08-08 18:35 | MHC.EDTECH ---
Patient refusing POC at this time.
[2024-08-08 18:43] VITALS: PULSE 84; RESP 14; TEMP 36.1; O2SAT 99
[2024-08-08 19:06] LABS: Appearance Urine Clear; Color Urine Yellow; Glucose Urine UA 500 mg/dL (Negative); Leukocyte Esterase Urine Negative (Negative); Nitrite Urine Negative (Negative); Specific Gravity - Urine >= 1.030 (1.005-1.025); UMIC TRIGGER UACC YES; Urine Blood Negative (Negative); Urine Ketones Negative (Negative); Urine Protein 100 (2+) mg/dL (Neg-Trace)
[2024-08-08 19:12] LABS: Bacteria Urine None Seen (None Seen); Hyaline Casts Urine 0-2 /LPF (0-2); RBC Urine 0-2 /HPF (0-2); Squamous Epithelial Cell Urine 0-2 /HPF (0-2); WBC Urine 0-5 /HPF (0-5)
--- NOTE | 2024-08-08 19:15 | PC.NURSE ---
patient appears to remain at rest presently respirations are even and unlabored patient appears in no distress, remains noncompliant with some elements of care
[2024-08-08 21:53] LABS: Amphetamine Screen Urine Not Detected (Not Detect); Barbiturates, Urine Not Detected (Not Detect); Benzodiazepines Screen Urine Not Detected (Not Detect); Buprenorphine Scr Not Detected (Not Detect); Cannabinoid Screen Urine Not Detected (Not Detect); Cocaine Screen Urine Not Detected (Not Detect); Fentanyl, urine Not Detected (Not Detect); Methadone Screen, Urine Not Detected (Not Detect); Opiate Screen Urine Not Detected (Not Detect); Oxycodone Screen Urine Not Detected (Not Detect); Phencyclidine Screen Urine Not Detected (Not Detect)
--- NOTE | 2024-08-09 04:02 | MHC.EDTECH ---
Asked patient if we could obtain a set of vitals. Patient stated No, not now. Patient has been refusing all care.
--- NOTE | 2024-08-09 07:12 | MHC.EDTECH ---
Patient was refusing all care (Vitals and POC), [facility]
--- NOTE | 2024-08-09 12:01 | MHC.EDTECH ---
Patient refused POC .
[2024-08-09 14:27] VITALS: BP 115/73; PULSE 86; RESP 16; TEMP 36.7; O2SAT 98
--- NOTE | 2024-08-09 15:26 | PC.NURSE ---
Pt cont to decline BG POC and medications; occasionally yells at RN station about signing out and leaving; pt redirectible
--- NOTE | 2024-08-09 23:44 | PC.NURSE ---
Took over care from MAYI Goodwin, pt sleeping at this time.
[2024-08-10 06:32] VITALS: BP 137/84; PULSE 68; RESP 17; TEMP 37; O2SAT 100
--- NOTE | 2024-08-10 07:55 | PC.NURSE ---
Assumed care of patient at 0645, patient appears to be in no apparent distress this am, calm and cooperative, eating breakfast at this time. Continue plan of care for case management follow up
--- NOTE | 2024-08-10 07:57 | PC.NURSE ---
patient refusing POC, stating he is not a diabetic
--- NOTE | 2024-08-10 08:09 | PC.NURSE ---
patient refusing am medications
--- NOTE | 2024-08-10 11:26 | MHC.CM.ED ---
Patient remains in ER BH pod. Per Dasia Parr CM Director, patient has been to multiple hospitals recently, including [facility], [facility] and [facility]. Patient already had a temporary guardian and Ankit's Order. Patient has never been to [facility] prior to this visit. From other ER visit documentation, patient's temporary guardian has not been agreeable to locked or longshore equipment operator care placement. Patient's Ankit Order is apparently for anti-psychotic medication and DM medication. While recently at [facility], the hospital already starting to petition the court to expand the guardianship. Patient left [facility] before a medical certificate can be completed. [facility]'s attorney law clerk is Chela. They are also [facility]'s attorneys. After discussion with Drawstring Knotter Bryan, Dasia Parr and Ramila extract wringer, it has been decided that Ramila will complete the medical certificate. After that patient will be d/c'd back to his home. Per Dasia Parr [facility] is aware of patient and is unwilling to find locked placement for the patient. Received telephone call from Elan, RENNY Marketing Information Analyst. Elan can be reached via telephone at [phone]. The above information was relayed to Elan. Elan requesting patient be held until guardianship is expanded. T/W reiterating that this would not be possible. Patient does not live in a half-way. Per Elan, he rents a room in a trailer. His address is [address] [place] [address] in [facility]. Elan request any med changes be faxed to [phone]. MAYI Guajardo aware. Continue to monitor for d/c needs.
--- NOTE | 2024-08-10 12:56 | PM.PSYCN ---
History of Present Illness Date of Service: 08/10/2024 Chief Complaint: Sec 12 CHD, delusional behavior, uncooperative Discussed with referring provider: Yes Sources of Information: patient interviewed, chart reviewed and crisis/core team assessment reviewed HPI Narrative: Mr. Kumar is a 63 year-old male who was brought via EMS due to concerns in terms of not taking medications for DM, nor psychiatric medications. He currently resides at [facility] supported housing. His ankit's and guardianship had on 08/07. He has refused insulin as he reports he was cured from DM. His labs do not show DKA as he had in the past. He also refuses antipsychotic medication as he does not think he needs it. Pt without SI/HI. Past Psychiatric History: Inpt:multiple in the past but non current OP: Elliott Sweeney [facility] DMH: Santiago Hartman ACCS:Elan Handle [phone] Ankit's monitor: Shayy Osorio Past Medication hx: olanzapine, unclear he has other trials or side effects to antipsychotics with REBOLLEDO option. Diagnostics Vital Signs (24Hr): Vital Signs - 24 hr 08/09/24 14:27 08/10/24 06:32 Temperature 98.1 F 98.6 F Pulse Rate 86 68 Respiratory Rate 16 17 Blood Pressure 115/73 137/84 Pulse Oximetry 98 100 Oxygen Delivery Method Room Air Room Air BMI result Body Mass Index 20.3 Labs 08/06/24 15:35 08/06/24 15:35 Labs: Laboratory Results - last 48 hr 08/08/24 18:40 Urine Color Yellow Urine Appearance Clear Urine pH 8.0 Ur Specific [place] >= 1.030 H Urine Protein 100 (2+) H Urine Glucose (UA) 500 H Urine Ketones Negative Urine Blood Negative Urine Nitrite Negative Ur Leukocyte Esterase Negative Urine RBC 0-2 Urine WBC 0-5 Ur Squamous Epith Cells 0-2 Urine Bacteria None Seen Hyaline Casts 0-2 Urine Opiates Screen Not Detected Ur Buprenorphine Scrn Not Detected Ur Oxycodone Screen Not Detected Urine Methadone Screen Not Detected Urine Fentanyl Screen Not Detected Ur Barbiturates Screen Not Detected Ur Phencyclidine Scrn Not Detected Ur Amphetamines Screen Not Detected U Benzodiazepines Scrn Not Detected Urine Cocaine Screen Not Detected U Marijuana (THC) Screen Not Detected Mental Status Exam Mental Status Exam Narrative: Appearance: disheveled, unkempt, restless Behavior: very guarded, suspicious, irritable Psychomotor: no agitation or retardation noted Speech: mostly clear, normal rate/rhythm/volume, spontaneous TP: tangential TC: wanting to go home Mood: fine Affect: irritable, guarded SI: denies HI: denies VH/AH: appears internally preoccupied Delusions: paranoid Insight/judgment: impaired x 2. Memory/cog: alert, not oriented to situation Medications Medications Current Medications Dextrose (Dextrose 50 % 25 Gm/50 Ml Syringe) 25 gm IVPUSH Q15M PRN; Protocol PRN Reason: per Hypoglycemia Standing Ord. Fluphenazine HCl (Fluphenazine Hcl 5 Mg Tablet) 5 mg PO BID [facility] Glucose (Glucose Gel 15 Gm Gel..Gram.) 15 gm PO Q15M PRN; Protocol PRN Reason: per Hypoglycemia Standing Ord. Insulin Glargine (Insulin Glargine,Hum.Rec.Anlog 100 Unit/Ml 10 Ml Vial) 25 unit SUBCUT ONCE [facility] Lorazepam (Lorazepam 1 Mg Tablet) 1 mg PO Q4H PRN PRN Reason: ciwa 7-12 Lorazepam (Lorazepam 1 Mg Tablet) 2 mg PO Q4H PRN PRN Reason: ciwa 13-16 Metformin HCl (Metformin Hcl 1,000 Mg Tablet) 1,000 mg PO BIDWM [facility] Last Admin: 08/10/24 08:08 Dose: Not Given Thiamine HCl (Thiamine Hcl 100 Mg Tablet) 100 mg PO DAILY [facility] Last Admin: 08/10/24 08:09 Dose: Not Given Trazodone HCl (Trazodone Hcl 50 Mg Tablet) 50 mg PO BEDTIME [facility] Last Admin: 08/09/24 20:29 Dose: Not Given Allergies Allergies Allergy/AdvReac Type Severity Reaction Status Date / Time No Known Allergies Allergy Verified 08/06/24 15:22 [No Known Allergies*] Assessment & Plan Assessment & Plan (1) Schizophrenia: Status: Acute Code(s): F20.9 - Schizophrenia, unspecified (2) Diabetes mellitus type 2 with complications: Status: Acute Code(s): E11.8 - Type 2 diabetes mellitus with unspecified complications Plan Mr. Kumar is a 63 year-old male with hx of schizophrenia, DM, who was sent to [facility] due to concerns in terms of his ability to care for himself. He had ankit's and a guadian after he was admitted medically at [facility] Last 02/2024. He has refused care and not able to follow up with providers as he avoids them due to paranoia delusions. In the ED, found to have elevated BS, not in DKA. However, he refuses insulin stating he does not have DM because he was cured. He is currently not in need of inpt level of care for psychiatric admission. However, he is not able to care for himself and requires locked setting. It appears his guardianship on 08/07/2024, which regardless have not been able to be enforced as it does not include placement and antipsychotic is not REBOLLEDO. PLAN 1. No imminent safety concern in terms of acute psychiatric symptoms for involuntary admission 2. No emergent medical intervention needed at this time. 3. Completed medical certificate and affidavit for trademark attorney to follow up on guardianship renewal Total time managing care of this patient today ____ minutes.
--- NOTE | 2024-08-10 13:19 | PC.NURSE ---
Attempted to offer patient 1255 prolixin, patient refused
[2024-08-10 15:32] VITALS: BP 119/81; PULSE 68; RESP 14; TEMP 37; O2SAT 97
== END 2024-08-10 15:35 | disposition home or self-care (01) ==
PROVIDERS: Social Worker; Emergency Provider Emergency Medicine
DX: F22 Delusional disorders (principal); R41.82 Altered mental status, unspecified; F10.129 Alcohol abuse with intoxication, unspecified; F20.9 Schizophrenia, unspecified; E11.8 Type 2 diabetes mellitus with unspecified complications; D64.9 Anemia, unspecified; R94.31 Abnormal electrocardiogram [ECG] [EKG]; Y90.8 Blood alcohol level of 240 mg/100 ml or more; Z91.148 Patient's other noncompliance with medication regimen for other reason; Z79.899 Other long term (current) drug therapy; Z51.81 Encounter for therapeutic drug level monitoring; Z79.4 Long term (current) use of insulin
CPT/HCPCS: 36415; 80048; 80061; 80179; 80307; 81001; 81003; 82607; 82746; 82947; 83036; 84439; 84443; 85025; 93005; 99285; S9485

== ENCOUNTER → 2024-08-06 15:44 | Outpatient (BNV) | payer OTHER, SELFPAY | PROVIDERS: Emergency Provider Emergency Medicine; Visit Provider Social Worker | DX: F20.9 Schizophrenia, unspecified (principal); E11.8 Type 2 diabetes mellitus with unspecified complications | CPT/HCPCS: 99285 ==

== ENCOUNTER → 2024-08-06 15:53 | Outpatient (BNV) | payer OTHER, SELFPAY | PROVIDERS: Emergency Provider Emergency Medicine; Visit Provider Internal Medicine | DX: R94.31 Abnormal electrocardiogram [ECG] [EKG] (principal); R41.82 Altered mental status, unspecified | CPT/HCPCS: 93010 ==